=== PATIENT | male | born 1955 | race Two or more races ===

== ENCOUNTER 2021-12-10 18:32 | Emergency (ER) | payer MEDICAID, OTHER ==
[~2021-12-10] VITALS: Ht 154.9 cm; Wt 93.1 kg
[2021-12-10 18:45] VITALS: BP 142/83
[2021-12-10] MEDS ORDERED: IBUP400T23 PO (20:57)
== END 2021-12-10 21:13 | disposition home or self-care (01) ==
LOC: ER 18:32
DX: S16.1XXA Strain of muscle, fascia and tendon at neck level, initial encounter (principal); R59.0 Localized enlarged lymph nodes; Z86.718 Personal history of other venous thrombosis and embolism; Z79.1 Long term (current) use of non-steroidal anti-inflammatories (NSAID); X50.1XXA Overexertion from prolonged static or awkward postures, initial encounter; Y93.89 Activity, other specified; Y92.89 Other specified places as the place of occurrence of the external cause; Y99.8 Other external cause status
CPT/HCPCS: 70490